=== PATIENT | male | born 1995 | race Caucasian/White ===

== ENCOUNTER 2022-06-12 02:29 | Inpatient (IN) | payer MEDICAID, OTHER ==
[~2022-06-12] VITALS: Ht 195.6 cm; Wt 81.8 kg
--- NOTE | 2022-06-12 03:14 | NUR ---
Reviewed Leah Bryant, BEREAVEMENT PROGRAM COORDINATOR general assessment, no changes
[2022-06-12] MEDS ORDERED: LORazepam 2 mg/ml vial IV ONE (03:30)
[2022-06-12] MEDS ORDERED: normal saline 1000ML IV soln IVB ONE (03:30)
[2022-06-12 03:39] LABS: BASOPHILS % (AUTO) 0.2 % (0-1); EOSINOPHILS % (AUTO) 0.1 % (0-6); HEMOGLOBIN 14.2 g/dl (14.0-17.9); LYMPHOCYTES # (AUTO) 0.6 X10'3 (1.1-4.8); LYMPHOCYTES % (AUTO) 11.2 % (21-51); MEAN CORPUSCULAR HEMOGLOBIN 32.1 PG (27.0-31.0); MEAN CORPUSCULAR HGB CONC 34.5 g/dL (33.0-36.5); MEAN CORPUSCULAR VOLUME 92.9 FL (78-98); MEAN PLATELET VOLUME 8.2 FL (7.4-10.4); MONOCYTES # (AUTO) 0.5 X10'3 (0-0.9); MONOCYTES % (AUTO) 8.8 % (2-12); NEUTROPHILS # (AUTO) 4.3 X10'3 (1.8-7.7); NEUTROPHILS % (AUTO) 79.7 % (42-75); PLATELET COUNT 130 X10'3 (140-440); RED BLOOD COUNT 4.41 X10'6 (4.70-6.10); RED CELL DISTRIBUTION WIDTH 13.2 % (11.5-14.5); WHITE BLOOD COUNT 5.4 X10'3 (4.5-11.0)
[2022-06-12 03:49] LABS: ALANINE AMINOTRANSFERASE 96 U/L (12-78); ALBUMIN 4.6 G/DL (3.4-5.0); ALBUMIN/GLOBULIN RATIO 1.1 (1.1-1.5); ALKALINE PHOSPHATASE 75 IU/L (46-116); ANION GAP 11 (8-16); ASPARTATE AMINO TRANSFERASE 127 U/L (10-37); BLOOD UREA NITROGEN 7 MG/DL (7-18); BUN/CREATININE RATIO 11.3 (5.4-32.0); CHLORIDE 99 MMOL/L (99-107); CREATININE 0.62 MG/DL (0.60-1.10); ETHANOL < 0.010 GM/DL (0.0-0.010); GLUCOSE 105 MG/DL (70-104); POTASSIUM 3.2 MMOL/L (3.5-5.1); SODIUM 135 MMOL/L (135-145); TOTAL CARBON DIOXIDE 25.1 MMOL/L (24-32); TOTAL PROTEIN 8.7 G/DL (6.4-8.2); eGFR > 90 ML/MIN
[2022-06-12 04:07] LABS: URINE AMPHETAMINE SCREEN NEGATIVE (Neg); URINE BARBITUATE SCREEN NEGATIVE (Neg); URINE BENZODIAZEPINES SCREEN NEGATIVE (Neg); URINE CANNABINOID SCREEN POSITIVE (Neg); URINE COCAINE SCREEN NEGATIVE (Neg); URINE METHADONE SCREEN NEGATIVE (Neg); URINE OPIATE SCREEN NEGATIVE (Neg); URINE PHENCYCLIDINE SCREEN NEGATIVE (Neg)
--- NOTE | 2022-06-12 04:16 | NUR ---
PT FOUND IN ROOM ATTEMPTING TO REMOVE IV. IV FLUIDS HOOKED BACK UP AND PT CLEANED UP. PT PLACED BACK IN BED AND REORIENTED. PT CONTINUES TO COMPLAIN OF AUDITORY HALUCINATIONS.
[2022-06-12] MEDS ORDERED: potassium Cl 20 mEq SR tablet PO PRN (05:35)
[2022-06-12] MEDS ORDERED: acetaminophen 325mg tablet PO PRN (05:35)
[2022-06-12] MEDS ORDERED: magnesium 4gm in 100ml NS 100 ML IV PRN (05:35)
[2022-06-12] MEDS ORDERED: magnesium hydroxide 30ml (MOM) UD suspension PO PRN (05:35)
[2022-06-12] MEDS ORDERED: LORazepam 2 mg/ml vial IV PRN (05:35)
[2022-06-12] MEDS ORDERED: ondansetron/PF 4mg/2ml inj IV PRN (05:35)
[2022-06-12] MEDS ORDERED: potassium Cl 40MEQ/1/2NS 520ml 520 ML IV PRN (05:35)
[2022-06-12] MEDS ORDERED: magnesium Cl slow-release 64mg tablet PO PRN (05:35)
[2022-06-12] MEDS ORDERED: mag hydrox/Alum hydrox/simeth 30ml oral suspension PO PRN (05:35)
[2022-06-12] MEDS ORDERED: metoprolol tartrate 50mg tablet PO ONE (05:40)
[2022-06-12 06:48] LABS: MAGNESIUM 1.8 MG/DL (1.5-2.4)
[2022-06-12] MEDS: heparin, porcine 5000 units/ml vial SQ SCH ×2 (07:23→19:31)
[2022-06-12] MEDS: potassium Cl 20 mEq SR tablet PO PRN ×2 (07:24→19:30)
[2022-06-12] MEDS: docusate sod 100mg capsule PO SCH ×2 (07:24→19:31)
[2022-06-12] MEDS ORDERED: thiamine 100mg/ml 2ml inj. IV SCH (08:00)
[2022-06-12] MEDS: K and/or MAG REPLACEMENT MC SCH ×2 (08:02→19:31)
[2022-06-12 08:59] VITALS: BP 131/58
--- NOTE | 2022-06-12 09:13 | NUR ---
received pt from ED. PT denies pain. Pt able to answer questions appropriately but is also describing things that dont make sense. Pt is talking to the vitals sign machine saying that it is his new friend that he just met. Provided pt with call light and oriented to room. Bed alarm on bed activated.
[2022-06-12] MEDS ORDERED: haloperidol 1mg tablet PO PRN (11:20)
[2022-06-12] MEDS ORDERED: haloperidol lactate 5mg/ml inj IM PRN ×2 (11:20→19:05)
[2022-06-12] MEDS ORDERED: NO HOME MEDS (12:09)
[2022-06-12] MEDS: LORazepam 1 MG tablet PO PRN (12:10)
[2022-06-12] MEDS ORDERED: ziprasidone IM 20mg inj **IM only IM PRN (15:55)
--- NOTE | 2022-06-12 16:45 | NUR ---
SW Dr. Marvin regarding placing pt on sorting machine operator. Dr. Marvin denies need at this time. Also, aware that pt pulled out piv and will not let us start a new one.
[2022-06-12 18:00] VITALS: BP 121/85
[2022-06-12] MEDS ORDERED: diphenhydrAMINE 50 mg/ml inj IM PRN (19:05)
[2022-06-12] MEDS ORDERED: LORazepam 2 mg/ml vial IM PRN (19:05)
[2022-06-12 22:00] VITALS: BP 93/56
[2022-06-13 05:10] LABS: BASOPHILS % (AUTO) 0.5 % (0-1); EOSINOPHILS # (AUTO) 0.1 X10'3 (0-0.9); EOSINOPHILS % (AUTO) 1.6 % (0-6); HEMATOCRIT 38.2 % (42.0-52.0); LYMPHOCYTES # (AUTO) 1.1 X10'3 (1.1-4.8); LYMPHOCYTES % (AUTO) 26.6 % (21-51); MEAN CORPUSCULAR HEMOGLOBIN 31.8 PG (27.0-31.0); MEAN CORPUSCULAR VOLUME 93.6 FL (78-98); MONOCYTES # (AUTO) 0.5 X10'3 (0-0.9); MONOCYTES % (AUTO) 11.2 % (2-12); NEUTROPHILS # (AUTO) 2.4 X10'3 (1.8-7.7); NEUTROPHILS % (AUTO) 60.1 % (42-75); PLATELET COUNT 127 X10'3 (140-440); RED BLOOD COUNT 4.08 X10'6 (4.70-6.10); RED CELL DISTRIBUTION WIDTH 13.3 % (11.5-14.5); WHITE BLOOD COUNT 4.1 X10'3 (4.5-11.0)
[2022-06-13 05:36] LABS: ALANINE AMINOTRANSFERASE 145 U/L (12-78); ALBUMIN 4.1 G/DL (3.4-5.0); ALBUMIN/GLOBULIN RATIO 1.1 (1.1-1.5); ALKALINE PHOSPHATASE 68 IU/L (46-116); ANION GAP 12 (8-16); ASPARTATE AMINO TRANSFERASE 223 U/L (10-37); BILIRUBIN,TOTAL 1.1 MG/DL (0.1-1.0); BLOOD UREA NITROGEN 10 MG/DL (7-18); BUN/CREATININE RATIO 14.7 (5.4-32.0); CALCIUM 9.2 MG/DL (8.5-10.1); CHLORIDE 101 MMOL/L (99-107); CREATININE 0.68 MG/DL (0.60-1.10); GLUCOSE 91 MG/DL (70-104); MAGNESIUM 1.9 MG/DL (1.5-2.4); POTASSIUM 3.4 MMOL/L (3.5-5.1); SODIUM 137 MMOL/L (135-145); TOTAL PROTEIN 7.8 G/DL (6.4-8.2); eGFR > 90 ML/MIN
--- NOTE | 2022-06-13 06:20 | NUR ---
Problems reprioritized. Patient report given, questions answered & plan of care reviewed with MINESH Guevara.
[2022-06-13] MEDS: K and/or MAG REPLACEMENT MC SCH ×2 (06:34→20:00)
[2022-06-13 06:48] VITALS: BP 112/64
--- NOTE | 2022-06-13 07:02 | NUR ---
Patient in room [facility]. I have received report from Fior EDGE and had the opportunity to ask questions and assume patient care.
[2022-06-13] MEDS: multivitamins, therapeutics tablet PO SCH (07:41)
[2022-06-13] MEDS: docusate sod 100mg capsule PO SCH ×2 (07:41→20:00)
[2022-06-13] MEDS: thiamine 100mg tablet PO SCH ×2 (07:42→07:48)
[2022-06-13] MEDS: LORazepam 1 MG tablet PO PRN ×2 (07:43→20:33)
[2022-06-13] MEDS: heparin, porcine 5000 units/ml vial SQ SCH ×2 (07:49→20:34)
[2022-06-13] MEDS: potassium Cl 20 mEq SR tablet PO PRN ×2 (08:39→20:35)
--- NOTE | 2022-06-13 10:54 | NUR ---
Paged hospitalist Paulino Riley [id number], Patient requesting nicotine patch, patient vapes. also wanting to know when he will see the Doctor, wanting to discharge. [id number]
[2022-06-13 10:59] VITALS: BP 106/79
[2022-06-13] MEDS: nicotine 14mg patch - 24hr TD SCH (13:45)
[2022-06-13 18:00] VITALS: BP 115/84
--- NOTE | 2022-06-13 18:34 | NUR ---
Problems reprioritized. Patient report given, questions answered & plan of care reviewed with Mihir EDGE.
--- NOTE | 2022-06-13 18:58 | NUR ---
[facility] to evaluate patient. dr. jaime cleared medically. [facility] called and is aware of medical clearance and packet has been faxed with addendum of medical clearance.
[2022-06-13 22:30] VITALS: BP 114/83
[2022-06-14] MEDS ORDERED: LORazepam 2 mg/ml vial IV PRN (05:35)
[2022-06-14] MEDS ORDERED: LORazepam 1 MG tablet PO PRN (05:35)
--- NOTE | 2022-06-14 06:09 | NUR ---
reported to days. noted pt resting w/o distress
[2022-06-14 06:22] VITALS: BP 109/72
--- NOTE | 2022-06-14 06:37 | NUR ---
Patient in room [facility]. I have received report from Mihir EDGE and had the opportunity to ask questions and assume patient care.
[2022-06-14 07:03] LABS: BASOPHILS % (AUTO) 0.6 % (0-1); EOSINOPHILS # (AUTO) 0.1 X10'3 (0-0.9); EOSINOPHILS % (AUTO) 1.8 % (0-6); HEMATOCRIT 39.1 % (42.0-52.0); HEMOGLOBIN 13.3 g/dl (14.0-17.9); LYMPHOCYTES # (AUTO) 0.9 X10'3 (1.1-4.8); LYMPHOCYTES % (AUTO) 23.9 % (21-51); MEAN CORPUSCULAR HEMOGLOBIN 31.8 PG (27.0-31.0); MEAN CORPUSCULAR HGB CONC 33.9 g/dL (33.0-36.5); MEAN CORPUSCULAR VOLUME 93.9 FL (78-98); MEAN PLATELET VOLUME 8.2 FL (7.4-10.4); MONOCYTES # (AUTO) 0.6 X10'3 (0-0.9); NEUTROPHILS # (AUTO) 2.2 X10'3 (1.8-7.7); NEUTROPHILS % (AUTO) 57.7 % (42-75); PLATELET COUNT 125 X10'3 (140-440); RED BLOOD COUNT 4.17 X10'6 (4.70-6.10); RED CELL DISTRIBUTION WIDTH 13.3 % (11.5-14.5); WHITE BLOOD COUNT 3.8 X10'3 (4.5-11.0)
[2022-06-14 07:23] LABS: ALANINE AMINOTRANSFERASE 150 U/L (12-78); ALBUMIN 4.1 G/DL (3.4-5.0); ALBUMIN/GLOBULIN RATIO 1.2 (1.1-1.5); ALKALINE PHOSPHATASE 69 IU/L (46-116); ANION GAP 12 (8-16); ASPARTATE AMINO TRANSFERASE 171 U/L (10-37); BLOOD UREA NITROGEN 8 MG/DL (7-18); BUN/CREATININE RATIO 12.9 (5.4-32.0); CALCIUM 9.2 MG/DL (8.5-10.1); CHLORIDE 101 MMOL/L (99-107); CREATININE 0.62 MG/DL (0.60-1.10); GLUCOSE 98 MG/DL (70-104); MAGNESIUM 2.2 MG/DL (1.5-2.4); POTASSIUM 3.4 MMOL/L (3.5-5.1); SODIUM 137 MMOL/L (135-145); TOTAL CARBON DIOXIDE 24.5 MMOL/L (24-32); TOTAL PROTEIN 7.6 G/DL (6.4-8.2); eGFR > 90 ML/MIN
[2022-06-14] MEDS: K and/or MAG REPLACEMENT MC SCH (07:26)
[2022-06-14] MEDS: multivitamins, therapeutics tablet PO SCH (07:55)
[2022-06-14] MEDS: thiamine 100mg tablet PO SCH (07:55)
[2022-06-14] MEDS: docusate sod 100mg capsule PO SCH (07:55)
[2022-06-14] MEDS: potassium Cl 20 mEq SR tablet PO PRN (07:55)
[2022-06-14] MEDS: heparin, porcine 5000 units/ml vial SQ SCH (07:56)
[2022-06-14] MEDS: nicotine 14mg patch - 24hr TD SCH (07:56)
[2022-06-14] MEDS ORDERED: naltrexone 50mg tablet PO SCH (08:00)
[2022-06-14 10:44] VITALS: BP 121/86
[2022-06-14] MEDS ORDERED: FOLI0.4T6 PO (11:44)
[2022-06-14] MEDS ORDERED: NALT50TA PO (11:44)
[2022-06-14] MEDS ORDERED: THIA100T70 PO (11:44)
[2022-06-14] MEDS ORDERED: NICO-631 TD (11:44)
[2022-06-14] MEDS ORDERED: MULT-1085 PO (11:44)
--- NOTE | 2022-06-14 12:32 | NUR ---
Discharge orders received and reviewed with patient. Reviewed instructions with Patient, Patient verbalized understanding. Patient walked to lobby with belongings.
[2022-06-15] MEDS ORDERED: potassium Cl 20 mEq SR tablet PO SCH (08:00)
[2022-06-16] MEDS ORDERED: LORazepam 1 MG tablet PO PRN (05:35)
[2022-06-16] MEDS ORDERED: thiamine 100mg tablet PO SCH (08:00)
--- NOTE | 2022-06-16 10:50 | NUR ---
Received order for consult. Patient was already discharged. Left message for patient to call me back.
[2022-06-17] MEDS ORDERED: folic acid 1mg tablet PO SCH (08:00)
== END 2022-06-14 12:13 | disposition home or self-care (01) | DRG 775 ==
LOC: ER 02:30 → ED HOLD 05:35 → SUR 3N 08:52
PROVIDERS: ADMIT Internal Medicine; ATTEND Family Medicine
DX: F10.259 Alcohol dependence with alcohol-induced psychotic disorder, unspecified (principal); F10.239 Alcohol dependence with withdrawal, unspecified; E87.6 Hypokalemia; R74.01 Elevation of levels of liver transaminase levels; F12.90 Cannabis use, unspecified, uncomplicated; R44.3 Hallucinations, unspecified; Z81.1 Family history of alcohol abuse and dependence
CPT/HCPCS: 36415; 70551; 80053; 80305; 80320; 83735; 85025; 87081; 96361; 96374; 99285; G0378; J1200; J1630; J1644; J2060; J3411; J3486; J7030